=== PATIENT | female | born 1980 | race African-American/Black ===

== ENCOUNTER 2020-02-12 11:05 | Inpatient (IN) | payer OTHER ==
[~2020-02-12] VITALS: Ht 157.5 cm; Wt 111.1 kg
[2020-02-12] MEDS ORDERED: METHYLERGONOVINE MALEATE 0.2 MG/ML IM PRN (12:15)
[2020-02-12] MEDS ORDERED: BUTORPHANOL TARTRATE 2 MG/ML VIAL IV PRN (12:15)
[2020-02-12] MEDS ORDERED: LIDOCAINE HCL 1% 20ML VIAL (Pyxis) INJ INFIL SCH (12:15)
[2020-02-12] MEDS ORDERED: NALOXONE HCL 0.4 MG/ML 1ML VIAL IM PRN (12:15)
[2020-02-12] MEDS ORDERED: PENICILLIN G POTASSIUM 5 MMU in DEXT 5% WATER 100 ML IV SCH (13:00)
[2020-02-12 14:07] LABS: CHLORIDE 107 mEq/L (98-107)
[2020-02-12] MEDS: LACTATED RINGERS 1,000 ML IV SCH ×2 (14:19→21:41)
[2020-02-12 14:32] LABS: BASOPHILS % 0.6 % (0.0-2.0); EOSINOPHILS % 0.7 % (0.0-5.0); HEMATOCRIT. 37.5 % (36.0-48.0); HEMOGLOBIN. 12.7 g/dL (12.0-16.0); LYMPHOCYTES % 17.7 % (20.0-50.0); MEAN CORPUSCULAR HEMOGLOBIN 30.9 pg (28.0-32.0); MEAN PLATELET VOLUME 12.8 fl (7.4-10.4); MONOCYTES % 5.5 % (2.0-8.0); NEUTROPHILS % 75.5 % (40.0-76.0); PLATELET 129 x1000/uL (130-400); RED BLOOD CELL COUNT 4.12 mill/uL (4.2-5.4); RED CELL DISTRIBUTION WIDTH 14.2 % (11.6-14.6)
[2020-02-12 14:40] LABS: INR 0.9; PARTIAL THROMBOPLASTIN TIME 23.9 sec (23.4-31.0); PROTHROMBIN TIME 9.7 sec (9.6-11.0)
[2020-02-12 14:46] LABS: HEPATITIS B SURFACE ANTIGEN NEGATIVE
[2020-02-12] MEDS ORDERED: ROPIVACAINE HCL/PF EPIDURAL 200 ML EPI SCH (15:00)
[2020-02-12] MEDS ORDERED: PNV1TABL76 MT (18:00)
[2020-02-12] MEDS: PENICILLIN G POTASSIUM 2.5 MMU in DEXTROSE 5% WATER 50 ML IV SCH ×2 (18:05→22:07)
[2020-02-12 18:35] LABS: CLARITY URINE CLEAR (CLEAR); COLOR URINE YELLOW (YELLOW); KETONES URINE 1+ (NEGATIVE); LEUKOCYTE ESTERASE URINE NEGATIVE (NEGATIVE); NITRITE URINE NEGATIVE (NEGATIVE); OCCULT BLOOD URINE TRACE (NEGATIVE); PH URINE 6.5 (4.5-8.0); PROTEIN URINE NEGATIVE (NEGATIVE); SPECIFIC GRAVITY URINE 1.015 (1.005-1.030)
[2020-02-12 18:45] LABS: *AMPHETAMINES SCREEN URINE NEGATIVE (NEGATIVE)
[2020-02-12 18:46] LABS: *BARBITURATES SCREEN URINE NEGATIVE (NEGATIVE); *BENZODIAZEPINES SCREEN URINE NEGATIVE (NEGATIVE); *COCAINE SCREEN URINE NEGATIVE (NEGATIVE); METHADONE URINE SCREEN NEGATIVE (NEGATIVE); OPIATES URINE SCREEN NEGATIVE (NEGATIVE); PHENCYCLIDINE URINE SCREEN NEGATIVE (NEGATIVE)
[2020-02-12 18:47] LABS: CANNABINOID URINE SCREEN NEGATIVE (NEGATIVE)
[2020-02-12] MEDS ORDERED: ONDANSETRON HCL 4MG/2ML INJ IV PRN (20:15)
[2020-02-13 00:31] LABS: HEMATOCRIT. 38.3 % (36.0-48.0); HEMOGLOBIN. 12.9 g/dL (12.0-16.0); MEAN CORPUSCULAR HEMOGLOBIN 30.6 pg (28.0-32.0); MEAN CORPUSCULAR VOLUME 91.1 fL (81.0-99.0); MEAN PLATELET VOLUME 13.1 fl (7.4-10.4); PLATELET 142 x1000/uL (130-400); RED CELL DISTRIBUTION WIDTH 13.9 % (11.6-14.6)
[2020-02-13 00:40] LABS: CHLORIDE 104 mEq/L (98-107)
[2020-02-13 01:02] LABS: PLATELET ESTIMATE NORMAL
[2020-02-13 01:09] LABS: CLARITY URINE CLEAR (CLEAR); COLOR URINE DARK YELLOW (YELLOW); KETONES URINE 2+ (NEGATIVE); LEUKOCYTE ESTERASE URINE 1+ (NEGATIVE); NITRITE URINE NEGATIVE (NEGATIVE); OCCULT BLOOD URINE 3+ (NEGATIVE); PH URINE 5.5 (4.5-8.0); PROTEIN URINE 1+ (NEGATIVE); SPECIFIC GRAVITY URINE 1.023 (1.005-1.030)
[2020-02-13 01:16] LABS: D-DIMER 4.6 mg/L FEU (<0.50); INR 0.9; PARTIAL THROMBOPLASTIN TIME 25.2 sec (23.4-31.0); PROTHROMBIN TIME 9.8 sec (9.6-11.0)
[2020-02-13] MEDS ORDERED: MAGNESIUM 4 G PREMIX 100 ML IV SCH (01:30)
[2020-02-13] MEDS ORDERED: LABETALOL HCL 5MG/ML VIAL 20ML IV PRN ×3 (01:30)
[2020-02-13] MEDS: MAGNESIUM 20 G PREMIX (L & D) 500 ML IV SCH ×2 (01:46→10:04)
[2020-02-13] MEDS ORDERED: LABETALOL 5MG/ML SYR 20 MG/4 ML SYRINGE IV ONE (02:45)
[2020-02-13] MEDS ORDERED: ROPIVACAINE HCL/PF EPIDURAL 200 ML EPI SCH (03:00)
[2020-02-13] MEDS ORDERED: LABETALOL 5MG/ML SYR 20 MG/4 ML SYRINGE IV SCH (03:15)
[2020-02-13] MEDS: PENICILLIN G POTASSIUM 2.5 MMU in DEXTROSE 5% WATER 50 ML IV SCH (03:24)
[2020-02-13] MEDS: LACTATED RINGERS 1,000 ML IV SCH (08:34)
[2020-02-13] MEDS ORDERED: FENTANYL CITRATE/PF 50MCG/ML 2ML VIAL ONE (12:45)
[2020-02-13] MEDS ORDERED: MORPHINE SULFATE/PF 1MG/ML 10ML AMP ONE (12:45)
[2020-02-13] MEDS ORDERED: EPHEDRINE SULFATE 50MG/ML VIAL ONE (12:46)
[2020-02-13] MEDS ORDERED: SODIUM CHLORIDE 0.9% 10ML VIAL ONE ×2 (12:46→12:47)
[2020-02-13] MEDS ORDERED: CEFAZOLIN SODIUM 1000MG/VIAL ONE (12:46)
[2020-02-13] MEDS ORDERED: OXYTOCIN 10 UNITS/ML 1ML ONE (12:46)
[2020-02-13] MEDS ORDERED: LIDOCAINE HCL/PF 2% 20MG/ML 5 ML/VIAL ONE (12:51)
[2020-02-13] MEDS ORDERED: KETOROLAC 60MG/2ML VIAL IM ONE (12:55)
[2020-02-13] MEDS ORDERED: METOCLOPRAMIDE HCL 10MG/2ML VIAL ONE (12:55)
[2020-02-13] MEDS ORDERED: ONDANSETRON HCL 4MG/2ML INJ ONE (12:55)
[2020-02-13] MEDS ORDERED: BISACODYL 10MG SUPP PR PRN (14:00)
[2020-02-13] MEDS ORDERED: LANOLIN OINT 7GM TUBE TOP PRN (14:00)
[2020-02-13] MEDS ORDERED: RHO(D) IMMUNE GLOBULIN 300 MCG/SYR IM PRN (14:00)
[2020-02-13] MEDS ORDERED: DEXT 5%/LR + PITOCIN 20UNITS/L 1,000 ML IV SCH (14:00)
[2020-02-13] MEDS ORDERED: ONDANSETRON HCL 4MG/2ML INJ IV PRN ×2 (14:00→14:15)
[2020-02-13] MEDS ORDERED: MAGNESIUM 20 G PREMIX (L & D) 500 ML IV SCH (14:00)
[2020-02-13] MEDS ORDERED: HEMORRHOIDAL SUPP PR PRN (14:00)
[2020-02-13] MEDS ORDERED: HYDROCODONE/ACETAMINOPHEN 5/325MG TABLET PO PRN (14:00)
[2020-02-13] MEDS ORDERED: IBUPROFEN 400MG TABLET PO PRN (14:00)
[2020-02-13] MEDS ORDERED: KETOROLAC 30MG/ML VIAL IV NR (14:15)
[2020-02-13] MEDS ORDERED: METOCLOPRAMIDE HCL 10MG/2ML VIAL IV NR (14:15)
[2020-02-13] MEDS ORDERED: MEPERIDINE HCL/PF 25MG/ML CPJ IV PRN (14:15)
[2020-02-13] MEDS: DEXT 5%/LR + PITOCIN 20UNITS/L 1,000 ML IV SCH ×2 (14:16→21:09)
[2020-02-13 16:30] VITALS: BP 129/63
[2020-02-13 17:00] VITALS: BP 131/65
[2020-02-13] MEDS ORDERED: TETANUS, DIPHTHERIA, PERTUSSIS VAC/PF 0.5ML (>7YR OLD) IM ONE (19:00)
[2020-02-13] MEDS ORDERED: INFLUENZA VACCINE 05/PF 0.5 ML VIAL IM ONE (19:00)
[2020-02-13 20:00] VITALS: BP 129/70
[2020-02-13] MEDS ORDERED: KETOROLAC 60MG/2ML VIAL IM NR (20:45)
[2020-02-14] VITALS: BP 111/62
[2020-02-14 04:00] VITALS: BP 107/57
[2020-02-14] MEDS: ACETAMINOPHEN WITH CODEINE 300/30MG TABLET PO PRN ×3 (05:26→22:19)
[2020-02-14] MEDS: DEXT 5%/LR + PITOCIN 20UNITS/L 1,000 ML IV SCH (05:26)
[2020-02-14 08:15] LABS: BASOPHILS % 0.2 % (0.0-2.0); EOSINOPHILS % 0.2 % (0.0-5.0); HEMATOCRIT. 32.1 % (36.0-48.0); HEMOGLOBIN. 10.8 g/dL (12.0-16.0); LYMPHOCYTES % 7.8 % (20.0-50.0); MEAN CORPUSCULAR HEMOGLOBIN 30.7 pg (28.0-32.0); MEAN CORPUSCULAR VOLUME 91.2 fL (81.0-99.0); MEAN PLATELET VOLUME 12.6 fl (7.4-10.4); NEUTROPHILS % 86.8 % (40.0-76.0); PLATELET 136 x1000/uL (130-400); RED BLOOD CELL COUNT 3.52 mill/uL (4.2-5.4)
[2020-02-14] MEDS: SIMETHICONE 80MG TABLET CHEW PO SCH ×3 (11:56→21:45)
[2020-02-14] MEDS: FERROUS SULFATE 325MG TABLET PO SCH (11:57)
[2020-02-14] MEDS: MAGNESIUM/ALUMINUM HYDROXIDE/SIMETHICONE 30ML UDC PO SCH ×3 (11:57→21:46)
[2020-02-14 21:00] VITALS: BP 132/67
[2020-02-14] MEDS: DOCUSATE SODIUM 100MG CAPSULE PO SCH (21:46)
[2020-02-15] VITALS: BP 112/51
[2020-02-15] MEDS: ACETAMINOPHEN WITH CODEINE 300/30MG TABLET PO PRN ×4 (03:45→20:18)
[2020-02-15 04:00] VITALS: BP 140/80
[2020-02-15] MEDS: FERROUS SULFATE 325MG TABLET PO SCH ×3 (07:30→16:25)
[2020-02-15 08:00] VITALS: BP 132/73
[2020-02-15] MEDS: SIMETHICONE 80MG TABLET CHEW PO SCH ×3 (09:17→22:07)
[2020-02-15] MEDS: PRENATAL VIT/FE FUMARATE/FA TABLET PO SCH (09:17)
[2020-02-15] MEDS: MAGNESIUM/ALUMINUM HYDROXIDE/SIMETHICONE 30ML UDC PO SCH ×3 (12:30→22:07)
[2020-02-15 16:00] VITALS: BP 132/73
[2020-02-15 20:10] VITALS: BP 148/73
[2020-02-15] MEDS: DOCUSATE SODIUM 100MG CAPSULE PO SCH (20:18)
[2020-02-16] MEDS ORDERED: IBUP-2028 PO (01:06)
[2020-02-16] MEDS ORDERED: T3 PO (01:06)
[2020-02-16 04:00] VITALS: BP 151/85
[2020-02-16] MEDS: ACETAMINOPHEN WITH CODEINE 300/30MG TABLET PO PRN ×2 (07:59→12:51)
[2020-02-16 08:00] VITALS: BP 136/71
[2020-02-16] MEDS: SIMETHICONE 80MG TABLET CHEW PO SCH ×2 (08:40→13:00)
[2020-02-16] MEDS: PRENATAL VIT/FE FUMARATE/FA TABLET PO SCH (08:40)
[2020-02-16] MEDS: MAGNESIUM/ALUMINUM HYDROXIDE/SIMETHICONE 30ML UDC PO SCH (08:40)
[2020-02-16] MEDS: FERROUS SULFATE 325MG TABLET PO SCH ×2 (08:41→12:30)
== END 2020-02-16 14:15 | disposition home or self-care (01) | DRG 540 ==
LOC: OBSVTOIN 11:05 → 8 EST LDRP 11:05 → 8EST 02-13 16:40
PROVIDERS: ADMIT Obstetrics & Gynecology; ATTEND Obstetrics & Gynecology
PROC: 10D00Z1 Extraction of Products of Conception, Low, Open Approach (ICD-10-PCS; principal; 2020-02-13)
DX: O34.211 Maternal care for low transverse scar from previous cesarean delivery (principal); O13.4 Gestational [pregnancy-induced] hypertension without significant proteinuria, complicating childbirth; O36.60X0 Maternal care for excessive fetal growth, unspecified trimester, not applicable or unspecified; O14.94 Unspecified pre-eclampsia, complicating childbirth; E66.9 Obesity, unspecified; O99.214 Obesity complicating childbirth; Z37.0 Single live birth; Z3A.39 39 weeks gestation of pregnancy
CPT/HCPCS: 36415; 76805; 80053; 80305; 81003; 83735; 84550; 85025; 85379; 85384; 86592; 86703; 86762; 86850; 86900; 86920; 87340; 88305; 88307; 90686; 90715; 99281; G0378; J0595; J0690; J1885; J2274; J2405; J2540; J2590; J2765; J2795; J3010; J3475; J3490; J7060; J7120